=== PATIENT | male | born 1990 | race Caucasian/White ===

== ENCOUNTER 2022-12-19 15:04 | Outpatient (CLI) | payer OTHER, SELFPAY | END 2022-12-19 15:05 | disposition home or self-care (01) | PROVIDERS: PCP Family Medicine; Visit Provider Family Medicine | DX: L65.9 Nonscarring hair loss, unspecified (principal); R53.83 Other fatigue; Z13.220 Encounter for screening for lipoid disorders | CPT/HCPCS: 80053; 80061; 82607; 84443 ==